=== PATIENT | male | born 1940 | race Caucasian/White ===

== ENCOUNTER 2018-01-03 16:55 | Emergency (ER) ==
[2018-01-03] MEDS ORDERED: SODIUM CHLORIDE 1,000 ML IV STA (16:58)
[2018-01-03 17:02] VITALS: BP 159/80; TEMP 97.5; BMI 25.8
[2018-01-03] MEDS ORDERED: DILAUDID 1 MG/ML SYRINGE IVP STA (17:08)
[2018-01-03] MEDS ORDERED: ZOFRAN 4 MG/2 ML IVP STA (17:09)
--- NOTE | 2018-01-03 18:52 | CT ---
EXAM: CT abdomen pelvis with contrast HISTORY: Upper abdominal pain COMPARISON: None TECHNIQUE: CT abdomen pelvis performed with intravenous contrast. Coronal and sagittal reformatted images obtained. FINDINGS: Mild granulomatous calcification lower chest. Mild dependent density lung bases. No free air. No acute abnormalities of the bones. Degenerative change in the spine. Heart normal in size. Liver appears normal. Gallbladder appears normal. Pancreas unremarkable. Spleen with granulomatous calcification and otherwise unremarkable. Adrenals unremarkable. Left renal cyst measuring 3.4 cm. No hydronephrosis. Aorta normal in caliber. Mild atherosclerosis. Bladder unremarkable. Surgica l clips in the right and left inguinal regions. Prostate top normal in size with suggestion of TURP defect. No lymphadenopathy or ascites. Stomach unremarkable. No dilated loops small bowel. Append ix not visualized. Moderate fecal retention in the colon. Small fat-containing periumbilical hernia . IMPRESSION: 1. No acute abnormality identified in the abdomen pelvis. 2. Moderate fecal retention in the colon. 3. Some chronic and incidental findings as described.
--- NOTE | 2018-01-03 19:13 | ED.PDOC ---
General ED Provider: Dr. DANNA JEREZ-ER Chief Complaint: Abdominal Pain Stated Complaint: i ate biscuits and gravy and now im hurting Time Seen by Physician: 17:00 Mode of Arrival: Wheelchair Information Source: Patient, Family Exam Limitations: No limitations Nursing and Triage Documentation Reviewed and Agree: Yes Does patient meet sepsis criteria?: No System Inflammatory Response Syndrome: Not Applicable Sepsis Protocol: For patient's 13 years and over: Temp is 96.8 and below OR 101 and greater Pulse >90 BPM Resp >20/minute Acutely Altered Mental Status Are patient's symptoms suggestive of a new infection, such as: -Pneumonia -Skin, Soft Tissue -Endocarditis -UTI -Bone, Joint Infection -Implantable Device -Acute Abdominal Infection -Wound Infection -Meningitis -Blood Stream Catheter Infection -Unknown GI Complaint Exam - Abdominal Pain Complaint/Exam Onset: Gradual Duration: one hour Symptoms Are: Still present Initial Severity: Mild Current Severity: Mild Location of Pain: Diffuse Character: Reports: Dull, Aching, Cramping Aggravating: Reports: Food Alleviating: Denies: Antacids, Vomiting Associated Signs and Symptoms: Denies: Diaphoresis, Fever, Cough, Chest pain, Dizziness, Back pain, Constipation, Blood in stool, Dysuria, Urinary frequency, Decreased urine output, Decreased appetite, Discharge, Nausea, Vomiting, Diarrhea, Decreased activity Differential Diagnoses: Bowel Obstruction, Constipation, Pancreatitis Quality Indicator For Non-Traumatic Chest Pain/Syncope: EKG Performed Review of Systems - Review Of Systems Constitutional: Reports: No symptoms Eyes: Reports: No symptoms Ears, Nose, Mouth, Throat: Reports: No symptoms Respiratory: Reports: No symptoms Cardiac: Reports: No symptoms GI: Reports: Abdominal pain : Reports: No symptoms Musculoskeletal: Reports: No symptoms Skin: Reports: No symptoms Neurological: Reports: No symptoms Endocrine: Reports: No symptoms Hematologic/Lymphatic: Reports: No symptoms All Other Systems: Reviewed and Negative Past Medical History - Past Medical History Previously Healthy: Yes Endocrine: Reports: Unknown Cardiovascular: Reports: Unknown Respiratory: Reports: Unknown Hematological: Reports: Unknown Gastrointestinal: Reports: Unknown Genitourinary: Reports: Unknown Neuro/Psych: Reports: Unknown Musculoskeletal: Reports: Unknown Cancer: Reports: Unknown - Surgical History General Surgical History: Reports: Unknown - Family History Family History: Reports: Unknown - Social History Smoking Status: Former smoker Hx Substance Use: No Alcohol Screening: Occasionally Physical Exam - Physical Exam Appearance: Well-appearing, No pain distress, Well-nourished Pain Distress: Moderate Eyes: NANCY, EOMI, Conjunctiva clear ENT: Ears normal, Nose normal, Oropharynx normal Neck: Supple Respiratory: Airway patent, Breath sounds clear, Breath sounds equal, Respirations nonlabored Cardiovascular: RRR, Pulses normal, No rub, No murmur GI/: Soft, Nontender, No masses, Bowel sounds normal, No Organomegaly Musculoskeletal: Normal strength, ROM intact, No edema, No calf tenderness Skin: Warm, Dry, Normal color Neurological: Sensation intact, Motor intact, Reflexes intact, Cranial nerves intact, Alert, Oriented Psychiatric: Affect appropriate, Mood appropriate Interpretation - Radiology Interpretation Radiology Interpretation By: Radiologist Radiology Results: Negative Exam Interpreted: CT Scan - EKG Interpretation Time of EKG #1: 19:13 Rate: Normal Rhythm: Sinus Ectopy: None [place]: NL ST Segment: Normal Interpretation: nsr Re-Evaluation - Re-Evaluation Time of Re-Evaluation: 19:13 Status: Improved Vital Signs Stable: Yes Pain Level: 0 Appearance: NAD Lungs: Clear Skin: Warm and Dry Neuro: Alert and Oriented X3 CV: RRR Critical Care Note - Critical Care Note Total Time (mins): 0 Course - Course Hematology/Chemistry: 01/03/18 17:10 01/03/18 17:10 Orders, Labs, Meds: Lab Review 01/03/18 01/03/18 01/03/18 17:10 17:10 18:15 WBC 5.94 RBC 4.29 L Hgb 13.4 L Hct 38.5 L MCV 89.7 MCH 31.2 H MCHC 34.8 RDW Coeff of Farhana 12.5 Plt Count 193 Immature Gran % (Auto) 0.3 Neut % (Auto) 50.8 Lymph % (Auto) 37.7 [place] % (Auto) 7.6 Eos % (Auto) 2.9 Baso % (Auto) 0.7 Immature Gran # (Auto) 0.0 Neut # (Auto) 3.0 Lymph # (Auto) 2.2 [place] # (Auto) 0.5 Eos # (Auto) 0.2 Baso # (Auto) 0.0 Sodium 142.5 Potassium 3.34 L Chloride 105.3 Carbon Dioxide 27.7 Anion Gap 12.84 BUN 17.0 Creatinine 0.76 Estimated GFR (MDRD) 100.00 BUN/Creatinine Ratio 22.36 Glucose 115.7 H Calcium 9.44 Total Bilirubin 0.53 AST 69.5 H ALT 28.3 Alkaline Phosphatase 64.2 Total Creatine Kinase 92.6 Troponin I < 0.012 Total Protein 7.11 Albumin 4.42 Globulin 2.69 Albumin/Globulin Ratio 1.64 Amylase 84.0 Lipase 99.3 Urine Color Yellow Urine Clarity Clear Urine pH 6.0 Ur Specific [employer] 1.025 Urine Protein Negative Urine Glucose (UA) Negative Urine Ketones Negative Urine Blood Negative Urine Nitrite Negative Urine Bilirubin Negative Urine Urobilinogen 1.0 Ur Leukocyte Esterase Negative Orders Category Date Time Status EKG-(ED ONLY) Stat CARDIO 01/03/18 16:58 Completed NPO REMINDER: IMAGING ONCE CARE 01/03/18 17:09 Active Throat Cutter [ED JACQUARD LOOM HEDDLES TIER APPLIED] .ONCE EMERGENCY 01/03/18 16:58 Active IV [ED IV/MEDIPORT/POWERPORT] .ONCE EMERGENCY 01/03/18 16:58 Active AMYLASE Stat LAB 01/03/18 17:10 Completed CBC W/ AUTO DIFF Stat LAB 01/03/18 17:10 Completed COMPREHENSIVE METABOLIC PANEL Stat LAB 01/03/18 17:10 Completed CREATINE KINASE Stat LAB 01/03/18 17:10 Completed LIPASE Stat LAB 01/03/18 17:10 Completed TROPONIN I Stat LAB 01/03/18 17:10 Completed URINALYSIS C & S IF INDICATED Stat LAB 01/03/18 18:15 Completed 0.9 % Sodium Chloride [Saline Flush] MEDS 01/03/18 16:58 Ordered 1 syr IVF PRN PRN Hydromorphone HCl [Dilaudid 1 mg/ml Syringe] MEDS 01/03/18 17:08 Discontinued 1 mg IVP ONCE STA Ondansetron HCl/Pf [Zofran 4 mg/2 ml] MEDS 01/03/18 17:09 Discontinued 4 mg IVP ONCE STA Sodium Chloride 0.9% [Sodium Chloride] 1,000 ml MEDS 01/03/18 16:58 Active IV 100 mls/hr CT ABDOMEN/PELVIS W CONTRAST Stat RADS 01/03/18 17:09 Completed Medications Generic Name Dose Route Start Last Admin Trade Name Freq PRN Reason Stop Dose Admin Sodium Chloride 1,000 mls @ 100 mls/hr 01/03/18 16:58 01/03/18 17:15 Sodium Chloride IV 01/04/18 02:57 100 mls/hr .Q10H STA Administration Sodium Chloride 1 syr 01/03/18 16:58 01/03/18 17:15 Saline Flush IVF 1 syr PRN PRN Administration To flush IV Discontinued Medications Generic Name Dose Route Start Last Admin Trade Name Surajq PRN Reason Stop Dose Admin Hydromorphone HCl 1 mg 01/03/18 17:08 01/03/18 17:15 Dilaudid 1 Mg/Ml Syringe IVP 01/03/18 17:09 1 mg ONCE STA Administration Ondansetron HCl 4 mg 01/03/18 17:09 01/03/18 17:15 Zofran 4 Mg/2 Ml IVP 01/03/18 17:10 4 mg ONCE STA Administration Vital Signs: Temp Pulse Resp BP Pulse Ox 01/03/18 16:56 97.5 F L 61 22 159/80 H 99 Departure - Departure Time of Disposition: 19:14 Disposition: HOME SELF-CARE Discharge Problem: Abdominal pain Instructions: Acute Abdominal Pain (ED) Condition: Good Pt referred to PMD for follow-up: Yes IPMP verified?: No Additional Instructions: avoid fatty foods--zantac 150mg bid #20---phazyme for gas ----f/u with md in [place] Allergies/Adverse Reactions: Allergies No Known Allergies Allergy (Verified 01/03/18 17:02) Home Medications: Ambulatory Orders 1 [No Reported Medications] 01/03/18 Disposition Discussed With: Patient, Family
== END 2018-01-03 19:30 | disposition home or self-care (01) ==
LOC: ED 16:55
DX: R10.9 Unspecified abdominal pain (principal)
CPT/HCPCS: 36415; 80053; 81001; 82150; 82550; 83690; 84484; 85025; 93005; 93010; 96361; 96374; 96375; 99284